=== PATIENT | female | born 1940 | race Caucasian/White ===

== ENCOUNTER 2017-02-13 13:06 | Inpatient (IN) | payer MEDICARE, OTHER ==
[2017-02-13] MEDS: SOD CHLORIDE 0.9% 1,000 ML IV (01:00)
[2017-02-13] MEDS: ACETAMINOPHEN 325 MG TAB PO (18:19)
[2017-02-13 18:20] LABS: ADD MAN DIFF? NO
[2017-02-13] MEDS: SODIUM CHLORIDE 0.9% 1L BAG IV* (18:20)
[2017-02-13 18:24] LABS: WHITE BLOOD COUNT 6.5 10^3/ul (4.8-10.8)
[2017-02-13 18:24] LABS: BASOPHILS % 0.2 % (0.0-2.0); HEMATOCRIT 37.9 % (37.0-47.0); HEMOGLOBIN 12.5 g/dl (12.0-16.0); LYMPHOCYTES # 1.9 10^3/ul (0.8-2.9); LYMPHOCYTES % 28.8 % (15.0-51.0); MEAN CORPUSCULAR HEMOGLOBIN 29.8 pg (29.0-33.0); MEAN CORPUSCULAR VOLUME 90.2 fl (82.0-101.0); MEAN PLATELET VOLUME 10.9 fl (7.4-10.4); MONOCYTE # 0.5 10^3/ul (0.3-0.9); NEUTROPHIL # 4.1 10^3/ul (1.6-7.5); NEUTROPHILS % 62.7 % (39.0-77.0); PLATELET COUNT 121 10^3/UL (140-415); RED CELL DISTRIBUTION WIDTH 13.2 % (11.5-14.5)
[2017-02-13 18:36] LABS: INR 0.93; PROTIME 12.5 Sec (11.9-14.9)
[2017-02-13 18:37] LABS: PARTIAL THROMBOPLASTIN TIME 32.3 Sec (25.0-35.0)
[2017-02-13 18:40] LABS: ADD UMIC YES; UR ASCORBIC ACID NEGATIVE (NEGATIVE); UR BILIRUBIN (Dip) NEGATIVE (NEGATIVE); UR BLOOD (Dip) 1+ mg/dL (NEGATIVE); UR CLARITY CLEAR (CLEAR); UR COLOR YELLOW (YELLOW); UR GLUCOSE (Dip) 3+ mg/dL (NEGATIVE); UR KETONES (Dip) NEGATIVE (NEGATIVE); UR LEUKOCYTE ESTERASE (Dip) NEGATIVE Leu/ul (NEGATIVE); UR NITRITE (Dip) NEGATIVE (NEGATIVE); UR RBC 2 /HPF (0-5); UR SPECIFIC GRAVITY (Dip) 1.021 (1.003-1.030); UR SQUAMOUS EPITHELIAL CELL FEW /HPF (FEW); UR TOTAL PROTEIN (Dip) 2+ mg/dl (NEGATIVE); UR UROBILINOGEN (Dip) 2+ mg/dL (NEGATIVE); UR WBC 5 /HPF (0-5)
[2017-02-13 18:44] LABS: ALANINE AMINOTRANSFERASE 42 IU/L (13-69); ALBUMIN 4.4 g/dl (3.3-4.9); ALBUMIN/GLOBULIN RATIO 1.04; ALKALINE PHOSPHATASE 78 IU/L (42-121); ANION GAP 21 (8-16); ASPARTATE AMINO TRANSFERASE 66 IU/L (15-46); BILIRUBIN,INDIRECT 0.1 mg/dl (0-1.1); BILIRUBIN,TOTAL 0.1 mg/dl (0.2-1.3); BLOOD UREA NITROGEN 9 mg/dl (7-20); CALCIUM 8.7 mg/dl (8.4-10.2); CARBON DIOXIDE 23 mmol/L (21-31); CHLORIDE 97 mmol/L (97-110); CREATININE 0.71 mg/dl (0.44-1.00); GLUCOSE 274 mg/dl (70-220); POTASSIUM 4.1 mmol/L (3.5-5.1); SODIUM 137 mmol/L (135-144); TOTAL PROTEIN 8.6 g/dl (6.1-8.1)
[2017-02-13 18:51] LABS: LACTIC ACID 3.5 mmol/L (0.5-2.0)
[2017-02-13 19:09] LABS: TROPONIN-I < 0.012 ng/ml (0.00-0.12)
[2017-02-13] MEDS: OSELTAMIVIR 75 MG CAP PO (19:10)
[2017-02-13] MEDS: CEFTRIAXONE 1 GM/50 ML (PMX) 50 ML IVPB (19:10)
[2017-02-13] MEDS ORDERED: ONDANSETRON 4 MG INJ IV ×2 (19:30→20:00)
[2017-02-13] MEDS ORDERED: HYDROCODONE/APAP (5/325) TAB PO (20:00)
[2017-02-13] MEDS ORDERED: morphine 2 MG INJ IV (20:00)
[2017-02-13] MEDS ORDERED: NA PHOSPHATE/BIPHOS 133 ML ENEMA PR (20:00)
[2017-02-13] MEDS ORDERED: VANCOMYCIN IV PER PHARMACY XX (20:00)
[2017-02-13] MEDS ORDERED: ALBUTEROL/IPRATROPIUM (NEB) 3 ML AMP HHN (20:00)
[2017-02-13] MEDS ORDERED: NITROGLYCERIN (SL) 0.4 MG TAB SL (20:00)
[2017-02-13] MEDS ORDERED: DOCUSATE SODIUM 100 MG CAP PO (20:00)
[2017-02-13] MEDS ORDERED: NACL 0.9% 3 ML SYG IV (20:00)
[2017-02-13] MEDS ORDERED: MAGNESIUM HYDROXIDE 30ML CUP PO (20:00)
[2017-02-13] MEDS ORDERED: LORAZEPAM 2 MG INJ IV (20:00)
[2017-02-13] MEDS: AZITHROMYCIN 500MG/NS (PMX) 250 ML IV (20:15)
[2017-02-13] MEDS: HEPARIN 5,000 UNIT/0.5 ML VIAL SC (21:00)
[2017-02-13] MEDS: VANCOMYCIN 1.25 GM in SODIUM CHLORIDE 0.45 % 250 ML IVPB (21:57)
[2017-02-13] MEDS: INSULIN ASPART [NOVOLOG] 3 ML PEN SC (22:06)
[2017-02-14 00:27] LABS: LACTIC ACID 1.7 mmol/L (0.5-2.0)
[2017-02-14] MEDS: ACETAMINOPHEN 325 MG TAB PO ×2 (01:01→20:25)
[2017-02-14] MEDS: PIPER-TAZO 2.25 GM (PMX) 50 ML IVPB ×4 (01:03→18:26)
[2017-02-14] MEDS: INSULIN ASPART [NOVOLOG] 3 ML PEN SC ×6 (01:14→20:28)
[2017-02-14] MEDS: ACCU-CHEK XX (01:16)
[2017-02-14 02:04] LABS: LACTIC ACID 1.2 mmol/L (0.5-2.0)
[2017-02-14] MEDS: HEPARIN 5,000 UNIT/0.5 ML VIAL SC ×2 (09:00→20:27)
[2017-02-14] MEDS: SOD CHLORIDE 0.9% 1,000 ML IV ×2 (09:20→20:26)
[2017-02-14 09:32] LABS: ADD MAN DIFF? NO
[2017-02-14 09:48] LABS: ABNORMAL IP MESSAGE 1; BASOPHILS % 0.3 % (0.0-2.0); HEMATOCRIT 33.3 % (37.0-47.0); HEMOGLOBIN 11.1 g/dl (12.0-16.0); LYMPHOCYTES # 2.2 10^3/ul (0.8-2.9); LYMPHOCYTES % 29.5 % (15.0-51.0); MEAN CORPUSCULAR HEMOGLOBIN 30.3 pg (29.0-33.0); MEAN CORPUSCULAR HGB CONC 33.3 g/dl (32.0-37.0); MEAN PLATELET VOLUME 11.5 fl (7.4-10.4); MONOCYTE # 0.3 10^3/ul (0.3-0.9); MONOCYTES % 4.4 % (0.0-11.0); NEUTROPHIL # 4.8 10^3/ul (1.6-7.5); NEUTROPHILS % 65.4 % (39.0-77.0); PLATELET COUNT 94 10^3/UL (140-415); POSITIVE DIFF @See below; RED BLOOD COUNT 3.66 10^6/ul (4.20-5.40); RED CELL DISTRIBUTION WIDTH 13.3 % (11.5-14.5)
[2017-02-14 09:48] LABS: WHITE BLOOD COUNT 7.3 10^3/ul (4.8-10.8)
[2017-02-14] MEDS ORDERED: GLUCOSE GEL 15 GRAM TUBE PO ×2 (10:00)
[2017-02-14] MEDS ORDERED: GLUCOSE GEL 15 GRAM TUBE BUCCAL (10:00)
[2017-02-14] MEDS ORDERED: DEXTROSE 50% 50 ML SYRINGE IV ×2 (10:00)
[2017-02-14] MEDS ORDERED: GLUCAGON 1 MG INJ IM (10:00)
[2017-02-14 10:02] LABS: CHOLESTEROL 101 mg/dl (100-200)
[2017-02-14 10:02] LABS: CHOL/HDL RATIO 4.5 RATIO; HDL CHOLESTEROL 22 mg/dl (33-92); LDL CHOLESTEROL,CALCULATED 60 mg/dl; TRIGLYCERIDES 94 mg/dl (0-149)
[2017-02-14 10:03] LABS: HEMOGLOBIN A1C 8.1 % (0-5.9)
[2017-02-14 10:05] LABS: LACTIC ACID 1.1 mmol/L (0.5-2.0)
[2017-02-14 10:06] LABS: ANION GAP 16 (8-16); BLOOD UREA NITROGEN 6 mg/dl (7-20); CALCIUM 7.9 mg/dl (8.4-10.2); CARBON DIOXIDE 23 mmol/L (21-31); CHLORIDE 108 mmol/L (97-110); CREATININE 0.56 mg/dl (0.44-1.00); GLUCOSE 150 mg/dl (70-220); POTASSIUM 3.6 mmol/L (3.5-5.1); SODIUM 143 mmol/L (135-144)
[2017-02-14 12:01] LABS: HEMOGLOBIN A1C 8.1 % (0-5.9)
[2017-02-14] MEDS: INSULIN GLARGINE [LANtus] 3 ML PEN SC (12:48)
[2017-02-14] MEDS: VANCOMYCIN 500MG/NS (PMX) 100 ML IVPB (20:26)
[2017-02-15] MEDS: PIPER-TAZO 2.25 GM (PMX) 50 ML IVPB ×3 (00:04→12:03)
[2017-02-15] MEDS: ACCU-CHEK XX (01:47)
[2017-02-15] MEDS: SOD CHLORIDE 0.9% 1,000 ML IV ×2 (04:14→16:48)
[2017-02-15 06:48] LABS: ADD MAN DIFF? NO
[2017-02-15 06:54] LABS: WHITE BLOOD COUNT 5.2 10^3/ul (4.8-10.8)
[2017-02-15 06:54] LABS: ABNORMAL IP MESSAGE 1; BASOPHILS % 0.2 % (0.0-2.0); EOSINOPHILS % 0.4 % (0.0-7.0); HEMATOCRIT 30.7 % (37.0-47.0); HEMOGLOBIN 10.4 g/dl (12.0-16.0); LYMPHOCYTES # 2.8 10^3/ul (0.8-2.9); LYMPHOCYTES % 54.3 % (15.0-51.0); MEAN CORPUSCULAR HEMOGLOBIN 30.3 pg (29.0-33.0); MEAN CORPUSCULAR HGB CONC 33.9 g/dl (32.0-37.0); MEAN CORPUSCULAR VOLUME 89.5 fl (82.0-101.0); MEAN PLATELET VOLUME 11.3 fl (7.4-10.4); MONOCYTE # 0.3 10^3/ul (0.3-0.9); MONOCYTES % 5.7 % (0.0-11.0); NEUTROPHIL # 2.1 10^3/ul (1.6-7.5); NEUTROPHILS % 39.2 % (39.0-77.0); PLATELET COUNT 83 10^3/UL (140-415); RED BLOOD COUNT 3.43 10^6/ul (4.20-5.40); RED CELL DISTRIBUTION WIDTH 13.2 % (11.5-14.5)
[2017-02-15 07:00] LABS: POSITIVE DIFF @See below
[2017-02-15] MEDS: INSULIN ASPART [NOVOLOG] 3 ML PEN SC ×3 (08:00→17:37)
[2017-02-15 08:07] LABS: ANION GAP 15 (8-16); BLOOD UREA NITROGEN 4 mg/dl (7-20); CALCIUM 7.7 mg/dl (8.4-10.2); CARBON DIOXIDE 23 mmol/L (21-31); CHLORIDE 110 mmol/L (97-110); CREATININE 0.59 mg/dl (0.44-1.00); GLUCOSE 107 mg/dl (70-220); POTASSIUM 3.3 mmol/L (3.5-5.1); SODIUM 145 mmol/L (135-144)
[2017-02-15] MEDS: INSULIN GLARGINE [LANtus] 3 ML PEN SC (08:58)
[2017-02-15] MEDS: HEPARIN 5,000 UNIT/0.5 ML VIAL SC (08:59)
[2017-02-15] MEDS ORDERED: VANCOMYCIN 1 GM in SOD CHLORIDE 0.9% 250 ML IVPB (09:00)
[2017-02-15] MEDS: POTASSIUM CHLORIDE (SR) 20 MEQ TAB PO (10:10)
[2017-02-15 11:38] LABS: TROPONIN-I < 0.012 ng/ml (0.00-0.12)
[2017-02-15] MEDS: ACETAMINOPHEN 325 MG TAB PO (12:11)
[2017-02-17] MEDS ORDERED: INFLUENZA VIRUS VACCINE 0.5 ML (DISPENSING) IM* (09:00)
== END 2017-02-15 18:27 | disposition home or self-care (01) | DRG 871 ==
LOC: E/R 13:06 → PP2 02-14 17:50 → MS3 19:30
DX: A41.9 Sepsis, unspecified organism (principal); J18.9 Pneumonia, unspecified organism; J98.11 Atelectasis; J20.9 Acute bronchitis, unspecified; E11.9 Type 2 diabetes mellitus without complications; I10 Essential (primary) hypertension; Z79.4 Long term (current) use of insulin
CPT/HCPCS: 36415; 71045; 80048; 80053; 80061; 81001; 82962; 83036; 83605; 84439; 84443; 84484; 85025; 85610; 85730; 87040; 87086; 87400; 93005; 96372; 96374; 96375; 99291-25